=== PATIENT | male | born 1940 ===

== ENCOUNTER 2017-08-13 01:10 | Day surgery (SDC) | payer MEDICARE, OTHER ==
[~2017-08-13] VITALS: Ht 188 cm; Wt 70.8 kg
[2017-08-13 06:30] VITALS: BP 140/90
[2017-08-13] MEDS ORDERED: LIDOCAINE/SOD BICARB 8.4% SYR ID ONE (06:30)
[2017-08-13] MEDS ORDERED: NORMOSOL R SOLN(*) 1000 ML BAG 1,000 ML IV PRN (06:30)
[2017-08-13] MEDS ORDERED: LIDOCAINE MPF 1% 5 ML VIAL ONE (06:51)
[2017-08-13] MEDS ORDERED: PROPOFOL EMUL(*) 10MG/ML 20 ML 60 ML ONE (06:51)
[2017-08-13 07:47] VITALS: BP 121/66
--- NOTE | 2017-08-13 07:53 | Short(Outpt) Discharge Summary ---
Discharge Summary Reason for Hosp/Final Diag: (1) Colon cancer screening Status: Chronic Hospital Course & Plan: Colonoscopy completed without problems. Departure Discharge to: Home, Self Care Discharge Instructions Home Meds No Active Prescriptions or Reported Meds Diet: Regular Activity: As Tolerated Special Instructions: Your colonoscopy was completed without problems and your prep was excellent (Good Job!!). Your colonoscopy was completely normal. If you are healthy at that time, I recommend that you have another colonoscopy in 10 years for screening. National guidelines suggest that you don't necessarily have to undergo colonoscopy after 80 years old but since you're only 76 years old currently you will be 86 years old in 10 years and if you are likely to live into your 90s then I would recommend 1 last colonoscopy in 10 years. TRINI DIAS MD Aug 13, 2017 07:53
[2017-08-13 08:34] VITALS: BP 152/83
[2017-08-13 08:37] VITALS: BP 126/84
== END 2017-08-13 09:00 | disposition home or self-care (01) ==
LOC: OR 01:10
PROVIDERS: ATTEND Surgery
DX: Z12.11 Encounter for screening for malignant neoplasm of colon (principal)
CPT/HCPCS: 00812; G0121; J2001; J2704